=== PATIENT | female | born 1955 | race Caucasian/White ===

== ENCOUNTER → 2018-10-30 | Outpatient (CLI) | payer OTHER ==
--- NOTE | 2018-11-01 11:33 | RAD ---
DATE: 10/30/2018 EXAM: DIGITAL SCREEN BILAT W/CAD HISTORY: Routine screening COMPARISON: None available This study was interpreted with the benefit of Computerized Aided Detection (CAD). Breast Density: HETERO The breast parenchyma is heterogenously dense, which could reduce sensitivity of mammography. Breast parenchyma level C. FINDINGS: There is a mild asymmetric opacity in the central aspect of the right breast. Benign type calcifications are present bilaterally. No suspicious microcalcifications are evident. IMPRESSION: Small right breast asymmetry. Diagnostic mammograms to include spot compression and potentially tomosynthesis imaging is suggested. If a suspicious density persists, right breast ultrasound would then the indicated. BI-RADS CATEGORY: 0 INCOMPLETE: NEEDS ADDITIONAL IMAGING EVALUATION AND/OR PRIOR MAMMOGRAMS FOR COMPARISON. RECOMMENDED FOLLOW-UP: ADD ADDITIONAL IMAGING PQRS compliance statement: Patient information was entered into a reminder system with a target due date for the next mammogram. Mammography is a sensitive method for finding small breast cancers, but it does not detect them all and is not a substitute for careful clinical examination. A negative mammogram does not negate a clinically suspicious finding and should not result in delay in biopsying a clinically suspicious abnormality. "Our facility is accredited by the [employer] Mammography [employer]."
== END | disposition home or self-care (01) ==
LOC: MAMMO 08:10
PROVIDERS: ATTEND Nurse Practitioner Family
DX: Z12.31 Encounter for screening mammogram for malignant neoplasm of breast (principal); N64.89 Other specified disorders of breast
CPT/HCPCS: 77067

== ENCOUNTER → 2019-01-01 | Outpatient (CLI) | payer OTHER ==
--- NOTE | 2019-01-01 14:29 | RAD ---
DATE: January 01, 2019 EXAM: DIGITAL DIAGNOSTIC RT, BREAST RIGHT SONOGRAM HISTORY: Further evaluation of nodule seen on screening new baseline mammogram. COMPARISON: October 30, 2018 screening mammogram. This study was interpreted with the benefit of Computerized Aided Detection (CAD). RIGHT-SIDED DIAGNOSTIC MAMMOGRAPHY Focal compression views of the right breast in the CC and MLO projections were. 90 degrees mediolateral view of the right breast was performed. These are all 2-D images. FINDINGS: Again seen is a nodular density of the central aspect of the right breast which persists with focal compression. Sonography will be performed. RIGHT BREAST SONOGRAPHY: High-resolution sonography of all 4 quadrants and the retroareolar region of the right breast was performed. The 12:00 position 1 cm from the nipple, a hypoechoic nodule is seen measuring 6.5 mm in greatest dimension. The posterior border demonstrates microlobulations. No internal vascularity is seen. This corresponds to the mammographic finding. IMPRESSION: Indeterminate 6.5 mm hypoechoic nodule of the 12:00 position of the right breast 1 cm from the nipple. Recommend ultrasound-guided core biopsy of this nodule. Note-the recommendation for biopsy of the right breast was discussed with the patient by the polysomnographic technologist after completion of the study at 2:08 PM on January 01, 2019. This study was interpreted off site. In addition, the polysomnographic technologist, Dipika, called the physician's office for this patient and discussed with them the recommendation for biopsy of the right breast using ultrasound guidance so that this procedure may get scheduled. BI-RADS CATEGORY: 4 SUSPICIOUS ABNORMALITY-BIOPSY SHOULD BE CONSIDERED RECOMMENDED FOLLOW-UP: BIO BIOPSY RECOMMENDED PQRS compliance statement: Patient information was entered into a reminder system with a target due date now for the biopsy. Mammography is a sensitive method for finding small breast cancers, but it does not detect them all and is not a substitute for careful clinical examination. A negative mammogram does not negate a clinically suspicious finding and should not result in delay in biopsying a clinically suspicious abnormality. "Our facility is accredited by the [employer] Mammography [employer]."
== END | disposition home or self-care (01) ==
LOC: MAMMO 12:57
PROVIDERS: ATTEND Nurse Practitioner Family
DX: N63.12 Unspecified lump in the right breast, upper inner quadrant (principal)
CPT/HCPCS: 76641; 77065